=== PATIENT | male | born 1975 | race Caucasian/White ===

== ENCOUNTER 2023-11-27 09:44 | Outpatient (OUT) | payer OTHER, SELFPAY ==
[2023-11-27 10:15] LABS: Basophils Percent Auto 0.4 % (0.2-2.0); Eosinophils Absolute Auto 0.2 10^3/uL (0.0-0.7); Eosinophils Percent Auto 2.2 % (0.9-7.0); Hemoglobin 14.9 g/dL (14.0-18.0); Immature Granulocytes Abs Auto 0.02 10^3/uL (0.00-0.03); Immature Granulocytes Pct Auto 0.3 % (0.0-0.5); Lymphocytes Absolute Auto 2.2 10^3/uL (1.2-3.8); Lymphocytes Percent Auto 31.3 % (20.5-60.0); Mean Corpuscular HGB Conc 33.9 g/dL (29.9-35.2); Mean Corpuscular Hemoglobin 29.3 pg (25.9-34.0); Mean Corpuscular Volume 86.6 fL (80.0-94.0); Mean Platelet Volume 10.2 fL (9.5-13.5); Monocytes Absolute Auto 0.4 10^3/uL (0.3-0.8); Monocytes Percent Auto 6.1 % (1.7-12.0); Neutrophils Absolute Auto 4.2 10^3/uL (1.4-6.5); Neutrophils Percent Auto 59.7 % (43.0-75.0); Platelet Count 167 10^3/uL (150-450); Red Blood Count 5.08 10^6/uL (4.70-6.10); Red Cell Distribution Width 12.9 % (11.0-15.0); White Blood Count 6.9 10^3/uL (4.0-11.0)
[2023-11-27 10:33] LABS: Estimated Average Glucose 209 mg/dL; Glycohemoglobin A1C 8.9 % (4.5-6.2)
[2023-11-27 10:51] LABS: Prostate Specific Antigen Dx 0.33 ng/mL (<=4.00)
[2023-11-27 11:35] LABS: Alanine Aminotransferase 26 U/L (16-63); Albumin Globulin Ratio 1.3; Albumin Level 3.9 g/dL (3.4-5.0); Alkaline Phosphatase 68 U/L (46-116); Anion Gap 9.4; Aspartate Amino Transferase 11 U/L (15-37); BUN Creatinine Ratio 15.2; Bilirubin Direct 0.1 mg/dL (0.0-0.2); Bilirubin Total 0.5 mg/dL (0.2-1.0); Calcium 9.1 mg/dL (8.5-10.1); Carbon Dioxide 29.8 mmol/L (21.0-32.0); Chloride 108 mmol/L (98-107); Chol HDL Ratio 5.8; Cholesterol 220 mg/dL (<=200); Estimated GFR (African America >60 (>=60); Estimated GFR (Non-African Ame >60 (>=60); Glucose 144 mg/dL (74-106); HDL Cholesterol 38 mg/dL (40-60); Potassium 4.2 mmol/L (3.5-5.1); Sodium 143 mmol/L (136-145); Thyroid Stimulating Hormone 2.279 uIU/mL (0.358-3.740); Total Protein 6.9 g/dL (6.4-8.2); Triglycerides 271 mg/dL (<=150); VLDL CHOLESTEROL 54.2 mg/dL
[2023-11-27 11:41] LABS: Microalbumin Urine Random <1.3 mg/dL (<=30.0)
== END 2023-11-27 09:45 | disposition home or self-care (01) ==
LOC: LAB 09:44
PROVIDERS: PCP Family Medicine; Visit Provider Family Medicine
DX: Z00.00 Encounter for general adult medical examination without abnormal findings (principal); E55.9 Vitamin D deficiency, unspecified; E11.65 Type 2 diabetes mellitus with hyperglycemia
CPT/HCPCS: 36415; 80048; 80061; 80076; 82043; 82306; 83036; 84153; 84443; 85025

== ENCOUNTER 2024-06-24 07:46 | Outpatient (OUT) | payer OTHER, SELFPAY ==
[2024-06-24 08:17] LABS: Estimated Average Glucose 126 mg/dL
== END 2024-06-24 07:47 | disposition home or self-care (01) ==
LOC: LAB 07:46
PROVIDERS: PCP Family Medicine; Visit Provider Family Medicine
DX: E11.65 Type 2 diabetes mellitus with hyperglycemia (principal)
CPT/HCPCS: 36415; 83036

== ENCOUNTER 2024-12-02 07:13 | Outpatient (OUT) | payer OTHER, SELFPAY ==
--- OUTSIDE RECORDS SUMMARY | 2024-12-02 07:18 | XMS_ITS | CCD ---
Author Organization [facility] Care Team Providers Care Electrical Instrument Technician Name Role Phone DR CORNELIUS ARITA Attending Unavailable LYLA, DR CORNELIUS Pate Admitting Unavailable LYLA, DR CORNELIUS Pate Primary Care Unavailable LYLA, DR CORNELIUS Pate Consulting Unavailable LYLA, DR CORNELIUS Pate Consulting Unavailable LYLA, DR CORNELIUS Pate Attending Unavailable LYLA, DR CORNELIUS Pate Admitting Unavailable Cornelius Arita MD Primary Care Provider [phone] Cornelius Arita MD Unavailable CORNELIUS ARITA Attending Unavailable LYLA, CORNELIUS Attending Unavailable Medications Current Medications Medication Drug Class(es) Dates Sig (Normalized) Sig (Original) atorvastatin 40 mg oral tablet (8 sources) HMG-CoA Reductase Inhibitor Start: 10-30-2024 take 1 tablet by mouth once daily at bedtime atorvastatin (Lipitor) 40 MG tablet Indications: Type 2 diabetes mellitus with hyperglycemia (CMS/HCC) TAKE 1 TABLET BY MOUTH EVERYDAY AT BEDTIME 90 tablet 4 10/30/2024 Active Start: 08-27-2024 Atorvastatin 4 0 mg tablet Active MG PO August 27, 2024 12:00am Start: 11-15-2023 take 1 tablet by olive th once daily at bedtime atorvastatin (Lipitor) 40 MG tablet Indications: Type 2 diabetes mellitus with hyperglycemia (CMS/HCC) TAKE 1 TABLET BY MOUTH EVERYDAY AT BEDTIME 30 tablet 11 11/15/2023 Active furosemide 40 mg oral tablet (8 sources) Loop Diuretic Start: 04-25-2024 take 1 tablet by mouth once daily furosemide (Lasix) 40 MG tablet Indications: Bilateral leg edema TAKE 1 TABLET BY MOUTH EVERY DAY 90 tablet 2 04/25/2024 Active polymyxin b 86539 unt/ml / trimethoprim 1 mg/ml ophthalmic solution (1 source) Dihydrofolate Reductase Inhibitor Antibacterial, Polymyxin-class Antibacterial Start: 08-27-2024 Polymyxin B Sulf-Trimethoprim 10,000 unit- 1 mg/mL drops Active 1 DROPS OPHTHALMIC Every three hours 10 August 27, 2024 12:00am while awake; do not exceed 6 doses in 24 hours semaglutide 14 mg oral tablet (7 sources) Start: 11-29-2023 take 1 tablet by mouth once daily semaglutide (Rybelsus) 14 MG tablet Indications: Type 2 diabetes mellitus with hyperglycemia, without long-term current use of insulin ([facility]) Take 1 tablet (14 mg) by mouth Daily 90 tablet 3 11/29/2023 Active Semaglutide (Rybelsus) 14 mg tablet (1 source) Start: 08-27-2024 Semaglutide (Rybelsus) 14 mg tablet Active MG PO August 27, 2024 12:00am Problems Active Problems Problem Classification Problem Date Documented Da te Episodic/Chronic Diabetes mellitus with complications (19 sources) Type 2 diabetes mellitus with hyperglycemia; Translations: [Hyperglycemia due to type 2 diabetes mellitus] Onset: 10-17-2022 Chronic Disorders of lipid metabolism (2 sources) Hyperlipidemia; Translations: [Hyperlipidemia, unspecified] 11-28-2024 Chronic Essential hypertension (11 sources) Benign essential hypertension; Translations: [Essential (primary) hypertension] Onset: 11-23-2023 11-23-2023 Chronic Nutritional deficiencies (8 sources) Vitamin D deficiency, unspecified; Translations: [Vitamin D deficiency] Onset: 11-19-2021 11-23-2023 Chronic Other male genital disorders (7 sources) Secondary erectile dysfunction; Translations: [Male erectile dysfunction, unspecified] Onset: 11-23-2023 11-23-2023 Chronic Other male genital disorders (2 sources) Male erectile dysfunction, unspecified; Translations: [Impotence of organic origin] 05-30-2024 Chronic Other nutritional; endocrine; and metabolic disorders (2 sources) Body mass index 30+ - obesity; Translations: [Body mass index (BMI) 36.0-36.9, adult] 05-30-2024 Chronic Other nutritional; endocrine; and metabolic disorders (4 sources) Severe obesity; Translations: [Class 2 severe obesity due to excess calories with serious comorbidity and body mass index (BMI) of 37.0 to 37.9 in adult ([facility])] Onset: 11-28-2024 11-28-2024 Chronic Residual codes; unclassified (9 sources) Obstructive sleep apnea syndrome; Translations: [Obstructive sleep apnea (adult) (pediatric)] Onset: 11-23-2023 11-23-2023 Chronic Thyroid disorders (7 sources) Hypothyroidism; Translations: [Hypothyroidism, unspecified] Onset: 11-23-2023 11-23-2023 Chronic Past or Other Problems Problem Classification Problem Date Documented Da te Episodic/Chronic Other screening for suspected conditions (not mental disorders or infectious disease) (2 sources) Other specified abnormal findings of blood chemistry; Translations: [Encounter for screening for malignant neoplasm of prostate] Onset: 11-19-2021 Episodic Residual codes; unclassified (9 sources) Bilateral lower limb edema; Translations: [Localized edema] Onset: 11-23-2023 11-23-2023 Episodic Results Test Name Value Interpretation Reference Range Facility [facility] HEMOGLOBIN A1Con 024 Glucose [Mass/Vol] 126 mg/dL [facility] HbA1c (Bld) [Mass fraction] 6 % 4.5 - 6.2 % [facility] Comment on above: ADA RECOMMENDED LIMI T 4.0 - 6.0 ADA THERAPEUTIC TARGET < 7.0 ACTION SUGGESTED > 7.0 [facility] A1Con 2022 ADA RECOMMENDATION SEE BELOW Normal [facility] Comment on above: Result Comment: ADA RECOMMENDED LIMIT 4.0 - 6.0 ADA THERAPEUTIC TARGET < 7.0 ACTION SUGGESTED > 7.0 Performed By: #### A 1C #### [facility] [address] [place] [address] Dr. Norm Rangel Glucose [Mass/Vol] 143 mg/dL Normal [facility] Comment on above: Performed By: #### A 1C #### [facility] [address] [address] [address] Norm Rangel HbA1c (Bld) [Mass fraction] 6.6 % Critically high 4.5-6.2 [facility] Comment on above: Performed By: #### A 1C #### [facility] [address] [address] [address] Norm Rangel CBC AUTO DIFFon 11-13-2021 BASO # 0.1 103/ul Normal 0.0-0.1 [facility] Comment on above: Performed By: #### C BC #### [facility] [address] [address] [address] Norm Rangel Basophils/100 WBC (Bld) 0.5 % Normal 0.2-2.0 [facility] Comment on above: Performed By: #### C BC #### [facility] [address] [address] [address] Norm Rangel EO # 0.5 103/ul Normal 0.0-0.7 [facility] Comment on above: Performed By: #### C BC #### [facility] [address] [address] [address] Norm Rangel Eosinophils/100 WBC (Bld) 3.9 % Normal 0.9-7.0 [facility] Comment on above: Performed By: #### C BC #### [facility] [address] [place] [address] Dr. Norm Rangel Erythrocyte distribution width (RBC) [Ratio] 13.6 % Normal 11.0-15.0 [facility] Comment on above: Performed By: #### C BC #### [facility] [address] [place] [address] Dr. Norm Rangel Hematocrit (Bld) [Volume fraction] 52.9 % Normal 42.0-54.0 [facility] Comment on above: Performed By: #### C BC #### [facility] [address] [place] [address] Dr. Norm Rangel Hemoglobin (Bld) [Mass/Vol] 17.5 g/dL Normal 14.0-18.0 [facility] Comment on above: Performed By: #### C BC #### [facility] [address] [place] [address] Dr. Norm Rangel IG # 0.05 10e3/ul Critically high 0.00-0.03 [facility] Comment on above: Performed By: #### C BC #### [facility] [address] [address] [address] Norm Rangel IG % 0.4 % Normal 0.0-0.5 [facility] Comment on above: Performed By: #### C BC #### [facility] [address] [place] [address] Dr. Norm Rangel LYMPH # 2.2 103/ul Normal 1.2-3.8 [facility] Comment on above: Performed By: #### C BC #### [facility] [address] [place] [address] Dr. Norm Rangel Lymphocytes/100 WBC (Bld) 16.8 % Critically low 20.5-60.0 [facility] Comment on above: Performed By: #### C BC #### [facility] [address] [place] [address] Dr. Norm Rangel MANUAL DIFF REQ NO Normal [facility] Comment on above: Performed By: #### C BC #### [facility] [address] [place] [address] Dr. Norm Rangel MCH (RBC) [Entitic mass] 28.9 pg Normal 25.9-34.0 [facility] Comment on above: Performed By: #### C BC #### [facility] [address] [place] [address] Dr. Norm Rangel MCHC (RBC) [Mass/Vol] 33.1 g/dL Normal 29.9-35.2 [facility] Comment on above: Performed By: #### C BC #### [facility] [address] [place] [address] Dr. Norm Rangel MCV (RBC) [Entitic vol] 87.4 fL Normal 80.0-94.0 [facility] Comment on above: Performed By: #### C BC #### [facility] [address] [place] [address] Dr. Norm Rangel MONO # 0.7 103/ul Normal 0.3-0.8 [facility] Comment on above: Performed By: #### C BC #### [facility] [address] [place] [address] Dr. Norm Rangel Monocytes/100 WBC (Bld) 5.2 % Normal 1.7-12.0 [facility] Comment on above: Performed By: #### C BC #### [facility] [address] [address] [address] Norm Rangel NEUT # 9.8 103/ul Critically high 1.4-6.5 [facility] Comment on above: Performed By: #### C BC #### [facility] [address] [address] [address] Norm Rangel Neutrophils/100 WBC (Bld) 73.2 % Normal 43.0-75.0 [facility] Comment on above: Performed By: #### C BC #### [facility] [address] [address] [address] Norm Rangel Platelet mean volume (Bld) [Entitic vol] 10.1 fL Normal 9.5-13.5 [facility] Comment on above: Performed By: #### C BC #### [facility] [address] [address] [address] Norm Rangel PLT 210 103/ul Normal 150-450 [facility] Comment on above: Performed By: #### C BC #### [facility] [address] [address] [address] Nomr Rangel RBC 6.05 106/ul Normal 4.70-6.10 [facility] Comment on above: Performed By: #### C BC #### [facility] [address] [address] [address] Norm Rangel WBC 13.3 103/ul Critically high 4.0-11.0 [facility] Comment on above: Performed By: #### C BC #### [facility] [address] [address] [address] Norm Rangel FREE T3on 11-13-2021 FREE T3 2.55 pg/mlL Critically low 2.77-5.27 [facility] Comment on above: Performed By: #### F T3 #### [facility] [address] [address] [address] Norm Rangel FREE T4on 11-13-2021 Free T4 [Mass/Vol] 0.63 ng/dL Critically low 0.78-2.19 [facility] Comment on above: Performed By: #### F T4 #### [facility] [address] [address] [address] Norm Rangel GLYCOHEMOGLOBIN A1Con 2021 ADA RECOMMENDATION ADA THERAPEUTIC TARGET 6.0 - 7.0 ACTION SUGGESTED > 7.0 Normal [facility] Comment on above: Performed By: #### A 1C #### [facility] [address] [address] [address] Norm Rangel Glucose [Mass/Vol] 186 mg/dL Normal [facility] Comment on above: Performed By: #### A 1C #### [facility] [address] [address] [address] Norm Rangel HbA1c (Bld) [Mass fraction] 8.1 % Critically high <=6.0 [facility] Comment on above: Performed By: #### A 1C #### [facility] [address] [address] [address] Norm Rangel LIPID PROFILEon 11-13-2021 CHOL-HDL RATIO NORM SEE BELOW Normal [facility] Comment on above: Result Comment: 3.3 - 4.4 LOW RISK 4.4 - 7.1 AVERAGE RISK 7.1 - 11.0 MODERATE RISK >11.0 HIGH RISK Performed By: #### L IPID, TSH, BMP, LIVER #### [facility] [address] [address] [address] Norm Rangel Cholesterol [Mass/Vol] 143 mg/dL Normal <=200 [facility] Comment on above: Performed By: #### L IPID, TSH, BMP, LIVER #### [facility] [address] [address] [address] Norm Rangel Cholesterol in HDL [Mass/Vol] 27 mg/dL Critically low 40-60 [facility] Comment on above: Performed By: #### L IPID, TSH, BMP, LIVER #### [facility] [address] [address] [address] Norm Rangel Cholesterol in LDL [Mass/Vol] 81.0 mg/dL Normal [facility] Comment on above: Performed By: #### L IPID, TSH, BMP, LIVER #### [facility] [address] [address] [address] Norm Rangel Cholesterol.total/Cho lesterol in HDL [Mass ratio] 5.3 {ratio} Normal [facility] Comment on above: Performed By: #### L IPID, TSH, BMP, LIVER #### [facility] [address] [address] [address] Norm Rangel HDL NORMAL > or = 60 mg/dl - LOW CARDIOVASCULAR RISK <40 mg/dl - HIGH CARDIOVASCULAR RISK Normal [facility] Comment on above: Performed By: #### L IPID, TSH, BMP, LIVER #### [facility] [address] [address] [address] Norm Rangel LDL CALC NORMAL SEE BELOW Normal [facility] Comment on above: Result Comment: <100 mg/dl OPTIMAL 100 - 129 mg/dl NEAR OR ABOVE OPTIMAL 130 - 159 mg/dl BORDERLINE HIGH 160 - 189 mg/dl HIGH >190 mg/dl VERY HIGH Performed By: #### L IPID, TSH, BMP, LIVER #### [facility] [address] [address] [address] Norm Rangel Triglyceride [Mass/Vol] 175 mg/dL Critically high <=150 [facility] Comment on above: Performed By: #### L IPID, TSH, BMP, LIVER #### [facility] [address] [address] [address] Norm Rangel VLDL CALC 35.0 mg/dL Normal [facility] Comment on above: Performed By: #### L IPID, TSH, BMP, LIVER #### [facility] [address] [address] [address] Norm Rangel LIVER PROFILEon 11-13-2021 Albumin [Mass/Vol] 4.4 g/dL Normal 3.4-5.0 [facility] Comment on above: Performed By: #### L IPID, TSH, BMP, LIVER #### [facility] [address] [place] [address] Dr. Norm Rangel Albumin/Globulin [Mass ratio] 1.4 {ratio} Normal [facility] Comment on above: Performed By: #### L IPID, TSH, BMP, LIVER #### [facility] [address] [address] [address] Norm Rangel ALP [Catalytic activity/Vol] 56 U/L Normal 46-116 [facility] Comment on above: Performed By: #### L IPID, TSH, BMP, LIVER #### [facility] [address] [place] [address] Dr. Norm Rangel ALT [Catalytic activity/Vol] 38 U/L Normal 16-63 [facility] Comment on above: Performed By: #### L IPID, TSH, BMP, LIVER #### [facility] [address] [place] [address] Dr. Nrom Rangel AST [Catalytic activity/Vol] 18 U/L Normal 15-37 [facility] Comment on above: Performed By: #### L IPID, TSH, BMP, LIVER #### [facility] [address] [place] [address] Dr. Norm Rangel BILI, CONJUGATED 0.1 mg/dL Normal 0.0-0.3 [facility] Comment on above: Performed By: #### L IPID, TSH, BMP, LIVER #### [facility] [address] [place] [address] Dr. Norm Rangel Bilirubin [Mass/Vol] 0.6 mg/dL Normal 0.2-1.3 [facility] Comment on above: Performed By: #### L IPID, TSH, BMP, LIVER #### [facility] [address] [place] [address] Dr. Norm Rangel Globulin (S) [Mass/Vol] 3.2 g/dL Normal [facility] Comment on above: Performed By: #### L IPID, TSH, BMP, LIVER #### [facility] [address] [place] [address] Dr. Norm Rangel Protein [Mass/Vol] 7.6 g/dL Normal 6.1-8.2 [facility] Comment on above: Performed By: #### L IPID, TSH, BMP, LIVER #### [facility] [address] [place], [place] [id number] Dr. Norm Rangel PROF CHEM 8 (BAS METB)on Anion gap [Moles/Vol] 13.0 mmol/L Normal [facility] Comment on above: Performed By: #### L IPID, TSH, BMP, LIVER #### [facility] [address] [place] [address] Dr. Norm Rangel Calcium [Mass/Vol] 8.9 mg/dL Normal 8.5-10.1 [facility] Comment on above: Performed By: #### L IPID, TSH, BMP, LIVER #### [facility] [address] [place] [address] Dr. Norm Rangel Chloride [Moles/Vol] 104 mmol/L Normal 98-107 [facility] Comment on above: Performed By: #### L IPID, TSH, BMP, LIVER #### [facility] [address] [place] [address] Dr. Norm Rangel CO2 [Moles/Vol] 28.2 mmol/L Normal 22.0-30.0 [facility] Comment on above: Performed By: #### L IPID, TSH, BMP, LIVER #### [facility] [address] [place] [address] Dr. Norm Rangel Creatinine [Mass/Vol] 1.15 mg/dL Normal 0.66-1.25 [facility] Comment on above: Performed By: #### L IPID, TSH, BMP, LIVER #### [facility] [address] [place] [address] Dr. Norm Rangel EGFR-AF GUAMANIAN >60 Normal >=60 [facility] Comment on above: Performed By: #### L IPID, TSH, BMP, LIVER #### [facility] [address] [place] [address] Dr. Norm Rangel EGFR-NON AF GUAMANIAN >60 Normal >=60 [facility] Comment on above: Performed By: #### L IPID, TSH, BMP, LIVER #### [facility] [address] [place] [address] Dr. Norm Rangel Glucose [Mass/Vol] 153 mg/dL Critically high 74-106 T [facility] Comment on above: Performed By: #### L IPID, TSH, BMP, LIVER #### [facility] [address] [place] [address] Dr. Norm Rangel Potassium [Moles/Vol] 4.2 mmol/L Normal 3.4-5.0 [facility] Comment on above: Performed By: #### L IPID, TSH, BMP, LIVER #### [facility] [address] [place] [address] Dr. Norm Rangel Sodium [Moles/Vol] 141 mmol/L Normal 137-145 [facility] Comment on above: Performed By: #### L IPID, TSH, BMP, LIVER #### [facility] [address] [place] [address] Dr. Norm Rangel Urea nitrogen [Mass/Vol] 17.0 mg/dL Normal 7.0-18.0 [facility] Comment on above: Performed By: #### L IPID, TSH, BMP, LIVER #### [facility] [address] [place] [address] Dr. Norm Rangel Urea nitrogen/Creatinine [Mass ratio] 14.8 mg/mg Normal [facility] Comment on above: Performed By: #### L IPID, TSH, BMP, LIVER #### [facility] [address] [place] [address] Dr. Norm Rangel TSHon 11-13-2021 TSH 6.140 uIU/mL Critically high 0.470-4.680 [facility] Comment on above: Performed By: #### L IPID, TSH, BMP, LIVER #### [facility] [address] [place] [address] Dr. Norm Rangel TSH RANGE SEE BELOW Normal [facility] Comment on above: Result Comment: <0.3 4 UIU/ml HYPERTHYROID 0.34-5.60 UIU/ml EUTHYROID >5.60 UIU/ml HYPOTHYROID Performed By: #### L IPID, TSH, BMP, LIVER #### [facility] [address] [place] [address] Dr. Norm Rangel VITAMIN D 25 OHon 11-13-2021 VIT D 25-OH 43.2 ng/mL Normal [facility] Comment on above: Performed By: #### F T3 #### [facility] [address] [place], [place] [address] Dr. Norm Rangel VIT D RANGES SEE BELOW Normal [facility] Comment on above: Result Comment: <20 ng/mL Vit D deficient 20 - <30 ng/mL Vit D insufficient 30 - 100 ng/mL Vit D sufficient >100 ng/mL Potential Toxicity Performed By: #### F T3 #### [facility] [address] [place], [place] [address] Dr. Norm Rangel Vital Signs Date Time Vital Sign Value Performing Clinician Facility 11-28-2024 15:39-0400 Body height 188 cm Cornelius Arita MD Work Phone: [facility] 11-28-2024 15:39-0400 Body mass index (BMI) [Ratio] 37.62 kg/m2 Cornelius Arita MD Work Phone: [facility] 11-28-2024 15:39-0400 Body temperature 98.01 [degF] Cornelius Arita MD Work Phone: [facility] 11-28-2024 15:39-0400 Body weight 132.9 kg Cornelius Arita MD Work Phone: [facility] 11-28-2024 15:39-0400 Diastolic blood pressure 72 mm[Hg] Cornelius Arita MD Work Phone: [facility] 11-28-2024 15:39-0400 Heart rate 88 /min Cornelius Arita MD Work Phone: [facility] 11-28-2024 15:39-0400 Respiratory rate 20 /min Cornelius Arita MD Work Phone: [facility] 11-28-2024 15:39-0400 SaO2% (BldA) [Mass fraction] 97 % Cornelius Arita MD Work Phone: [facility] 11-28-2024 15:39-0400 Systolic blood pressure 140 mm[Hg] Cornelius Arita MD Work Phone: [facility] 08-27-2024 13:18-0500 Body height 189.23 cm [facility] 08-27-2024 13:18-0500 Body mass index (BMI) [Ratio] 37.6 kg/m2 [facility] 08-27-2024 13:18-0500 Body temperature 98.7 [degF] [facility] 08-27-2024 13:18-0500 Body weight 134.88 kg [facility] 08-27-2024 13:18-0500 Diastolic blood pressure 81 mm[Hg] [facility] 08-27-2024 13:18-0500 Heart rate 77 /min [facility] 08-27-2024 13:18-0500 Respiratory rate 19 /min [facility] 08-27-2024 13:18-0500 SaO2% (BldA) [Mass fraction] 97 % [facility] 08-27-2024 13:18-0500 Systolic blood pressure 118 mm[Hg] [facility] 05-30-2024 15:31-0400 Body height 188 cm Cornelius Arita MD Work Phone: [facility] 05-30-2024 15:31-0400 Body mass index (BMI) [Ratio] 37.11 kg/m2 Cornelius Arita MD Work Phone: [facility] 05-30-2024 15:31-0400 Body temperature 97.11 [degF] Cornelius Arita MD Work Phone: [facility] 05-30-2024 15:31-0400 Body weight 131.09 kg Cornelius Arita MD Work Phone: [facility] 05-30-2024 15:31-0400 Diastolic blood pressure 70 mm[Hg] Cornelius Arita MD Work Phone: [facility] 05-30-2024 15:31-0400 Heart rate 87 /min Cornelius Arita MD Work Phone: [facility] 05-30-2024 15:31-0400 Respiratory rate 20 /min Cornelius Arita MD Work Phone: [facility] 05-30-2024 15:31-0400 SaO2% (BldA) [Mass fraction] 96 % Cornelius Arita MD Work Phone: [facility] 05-30-2024 15:31-0400 Systolic blood pressure 128 mm[Hg] Cornelius Arita MD Work Phone: [facility] Healthcare Encounters Encounter Date Encounter Type Care Provider Facility Start: 11-28-2024 End: 11-28-2024 Patient encounter procedure Cornelius Arita MD Work Phone: [facility] Healthcare Work Phone: Start: 11-28-2024 End: 11-28-2024 Periodic preventive med est patient 40-64yrs Cornelius Arita MD Work Phone: [facility] Comment on above: Annual physical exam (Primary Dx); Type 2 diabetes mellitus with hyperglycemia, without long-term current use of insulin ([facility]); Essential hypertension, benign (CMS/[facility]); Class 2 severe obesity due to excess calories with serious comorbidity and body mass index (BMI) of 37.0 to 37.9 in adult (CMS/HCC); Type 2 diabetes mellitus with other specified complication; Hyperlipidemia, unspecified (CMS/HCC) Start: 11-28-2024 End: 11-28-2024 ambulatory CORNELIUS ARITA Not Available Start: 11-28-2024 End: 11-28-2024 Bamboo flowsheet Cornelius Arita MD Work Phone: [facility] Start: 11-28-2024 End: 11-28-2024 Bamboo flowsheet Cornelius Arita MD Work Phone: [facility] Start: 08-27-2024 End: 08-27-2024 ambulatory [facility] Work Phone: Start: 08-27-2024 End: 08-27-2024 Patient encounter procedure [facility] Physician [facility] Work Phone: Start: 06-24-2024 End: 06-26-2024 Clinisync Result Encounter Cornelius Arita MD Work Phone: [facility] External Department Unsolicited Start: 06-24-2024 End: 06-26-2024 Clinisync Result Encounter Cornelius Arita MD Work Phone: [facility] External Department Unsolicited Start: 05-30-2024 End: 05-30-2024 Office outpatient visit 25 minutes Cornelius Arita MD Work Phone: [facility] Comment on above: Type 2 diabetes kae itus with hyperglycemia, without long-term current use of insulin (CMS/HCC) (Primary Dx); Essential hypertension, benign (CMS/HCC); Bilateral leg edema; Obstructive sleep apnea; Body mass index (BMI) 36.0-36.9, adult; Type 2 diabetes mellitus with other specified complication (CMS/HCC); Male erectile dysfunction, unspecified Start: 05-30-2024 End: 05-30-2024 ambulatory CORNELIUS ARITA Not Available Start: 05-30-2024 End: 05-30-2024 Bamboo flowsheet Cornelius Arita MD Work Phone: [facility] Start: 05-30-2024 End: 05-30-2024 Bamboo flowsheet Cornelius Arita MD Work Phone: [facility] Start: 11-23-2023 Patient encounter procedure Cornelius Arita MD Work Phone: [facility] Start: 10-17-2022 End: 10-18-[address] CORNELIUS ARITA Facility:H1 Start: 11-19-2021 Encounter for genera l adult medical examination without abnormal findings DR CORNEILUS ARITA [facility] Start: 11-13-2021 End: 11-14-[address] CORNELIUS ARITA Facility:[facility]1 Start: 11-13-2021 End: 11-14-2021 Encounter for general adult medical examination without abnormal findings DR CORNELIUS ARITA Facility:[facility]1 Procedures Date Procedure Procedure Detail Performing Clinician Start: 06-24-2024 MLR HEMOGLOBIN A1C Cornelius Arita MD Work Phone: Start: 11-13-[address] CORNELIUS CANALES Comment on above: Performed By: #### V ITARMAND, PSASC #### [facility] [address] [place] [address] Dr. Norm Rangel Plan of Treatment Date Care Activity Detail Author Start: 12-06-2026 Screening for malign ant neoplasm of colon [facility] Start: 06-04-2025 End: 06-04-2025 Patient encounter procedure 06/04/2025 2:45 PM EDT Office Visit [facility] [address] [place] [address] Cornelius Arita MD [address] [place] [phone] [facility] Start: 04-23-2025 Influenza vaccination Influenz a Vaccine (Season Ended) [facility] Start: 11-30-2024 End: 11-30-2024 Patient encounter procedure 11/30/2024 3:00 PM EDT Office Visit [facility] [address] [place] [phone] Cornelius Arita MD [address] [place] [phone] [facility] Start: 11-28-2024 End: 11-28-2024 Patient encounter procedure 11/28/2024 3:15 PM EDT Office Visit [facility] [address] [place] [phone] Cornelius Arita MD [address] [place] [phone] Arrived [facility] Comment on above: Arrived Start: 11-28-2024 End: 11-28-2025 Basic metabolic 1998 panel - Serum or Plasma Basic metabolic panel Lab Routine Annual physical exam Expected: 11/28/2024 (Approximate), Expires: 11/28/2025 [facility] Comment on above: Expected: 11/28/2024 (Approximate), Expires: 11/28/2025 Start: 11-28-2024 End: 11-28-2025 CBC W Auto Differential panel - Blood CBC and differential Lab Routine Annual physical exam Expected: 11/28/2024 (Approximate), Expires: 11/28/2025 [facility] Comment on above: Expected: 11/28/2024 (Approximate), Expires: 11/28/2025 Start: 11-28-2024 End: 11-28-2025 Hemoglobin A1c/Hemoglobin.total in Blood Hemoglobin A1c Lab Routine Annual physical exam Expected: 11/28/2024 (Approximate), Expires: 11/28/2025 [facility] Comment on above: Expected: 11/28/2024 (Approximate), Expires: 11/28/2025 Start: 11-28-2024 End: 11-28-2025 Hepatic function 2000 panel - Serum or Plasma Hepatic function panel Lab Routine Annual physical exam Expected: 11/28/2024 (Approximate), Expires: 11/28/2025 [facility] Comment on above: Expected: 11/28/2024 (Approximate), Expires: 11/28/2025 Start: 11-28-2024 End: 11-28-2025 Lipid 1996 panel - Serum or Plasma Lipid panel Lab Routine Annual physical exam Expected: 11/28/2024 (Approximate), Expires: 11/28/2025 [facility] Comment on above: Expected: 11/28/2024 (Approximate), Expires: 11/28/2025 Start: 11-28-2024 End: 11-28-2025 Microalbumin/Creatinine panel in random Urine Microalbumin / creatinine, urine ratio Lab Routine Type 2 diabetes mellitus with hyperglycemia, without long-term current use of insulin ([facility] Expected: 11/28/2024 (Approximate), Expires: 11/28/2025 [facility] Work Phone: Comment on above: Expected: 11/28/2024 (Approximate), Expires: 11/28/2025 Start: 11-28-2024 End: 11-28-2025 Prostate specific Ag [Mass/volume] in Serum or Plasma PSA Lab Routine Annual physical exam Expected: 11/28/2024 (Approximate), Expires: 11/28/2025 [facility] Comment on above: Expected: 11/28/2024 (Approximate), Expires: 11/28/2025 Start: 11-28-2024 End: 11-28-2025 Thyrotropin [Units/volume] in Serum or Plasma TSH Lab Routine Annual physical exam Expected: 11/28/2024 (Approximate), Expires: 11/28/2025 [facility] Comment on above: Expected: 11/28/2024 (Approximate), Expires: 11/28/2025 Start: 11-26-2024 Urine screening for protein Diabetes: Urine Protein Screening [facility] Start: 05-30-2024 End: 05-30-2024 Patient encounter procedure 05/30/2024 3:30 PM EDT Office Visit [facility] [address] [place] [phone] Cornelius Arita MD [address] [place] [phone] Arrived [facility] Comment on above: Arrived Start: 05-30-2024 End: 05-30-2025 Hemoglobin A1c/Hemoglobin.total in Blood Hemoglobin A1c Lab Routine Type 2 diabetes mellitus with hyperglycemia, without long-term current use of insulin ([facility]) Expected: 05/30/2024 (Approximate), Expires: 05/30/2025 [facility] Work Phone: Comment on above: Expected: 05/30/2024 (Approximate), Expires: 05/30/2025 Start: 05-28-2024 Hemoglobin A1c measurement Diabetes: Hemoglobin A1C [facility] Start: 04-23-2024 Influenza vaccination Influenza Vacc ine (#1) [facility] Start: 12-22-1995 Urine screening for protein Diabetes: Urine Protein Screening [facility] Start: 1986 Glaucoma screening Diabetes: R etinopathy Screening [facility] Start: 1976 Hemoglobin A1c measurement Diabetes: Hemoglobin A1C [facility] Start: 1976 Screening for malign ant neoplasm of colon [facility] Payers Date Payer Category Payer Unknown [employer] [id number] 2023-Present [address] [place] [address] [id number] 2022 Private Health Insurance [id number] 2022 Private Health Insurance [id number] 1976 Unknown [id number] 1976 Unknown [id number] 1976 Unknown [id number] 1976 Unknown [id number] 1959 Unknown [id number] 1959 Unknown [id number] Social History Date Type Detail Facility [facility]: [facility]23[facility]23 [facility] Start: 11-23-2023 Tobacco use and exposure User of smokeless tobacco [facility] History of tobacco use Chews Tobacco [facility] Start: 11-23-2023 End: 11-28-2024 History of Social function [facility] Start: 11-23-2023 End: 11-28-2024 Tobacco use panel [facility] Start: 1976 Sex assigned at Not on file [facility] Tobacco smoking stat [facility] Unknown if ever smoked [facility] Work Phone: Start: 08-27-2024 Sex Male (finding) [facility] Start: 1975 Sex Assigned At Male F [facility] History of Present illness Narrative 11-28-2024 Cornelius Arita MD - 11/28/2024 4:42 PM Keith Arita MD - 11/28/2024 4:41 PM EDAndree Arita MD - 11/28/2024 4:41 PM EDAndree Arita MD - 11/28/2024 4:41 PM EDT Note Date & Type Note Facility 11-28-2024 History of Presen t illness Narrative Associated Problem(s): Class 2 severe obesity due to excess calories with serious comorbidity and body mass index (BMI) of 37.0 to 37.9 in adult ([facility]) Weight loss indicated. Associated Problem(s): Type 2 diabetes mellitus with hyperglycemia, without long-term current use of insulin ([facility]) Reports BS controlled and due for A1C. Stick to ADA diet and limit carbs. Associated Problem(s): Essential hypertension, benign ([facility]) BP controlled and monitor PRN. Associated Problem(s): Annual physical exam Due for labs. Discussed proper diet and regular aerobic exercise. Need aerobic exercise 5-6 days a week for 30 minutes at a time. Smaller portions and limit total calories. Colonoscopy every 10 years. Tetanus every 10 years. Advised not to smoke. Images from the original note were not included. Subjective Patient ID: Edi Gaming is a 48 y.o. male who presents for Annual Exam (wellness). Presents for annual PE. Weight up 7 pounds since fall. Tries to stay active and walks dogs daily but not to gym for several weeks. Tries to watch diet and eat healthy. Increased fruits and vegetables. Smaller portions and limits snacking. Tries to limit total daily calories. Due for labs. BS controlle and 120-135. Tries to eat well and stick to ADA diet. Denies signs of elevated BS such as polyuria, polyphagia or polydipsia. Review of Systems Constitutional: Negative for fatigue. Respiratory: Negative for cough, shortness of breath and wheezing. Cardiovascular: Negative for chest pain and palpitations. Gastrointestinal: Negative for abdominal pain, diarrhea, nausea and vomiting. Genitourinary: Negative for dysuria. Objective Physical Exam Constitutional: General: He is not in acute distress. Appearance: Normal appearance. HENT: Head: Normocephalic. Right Ear: Tympanic membrane and ear canal normal. Left Ear: Tympanic membrane and ear canal normal. Eyes: Extraocular Movements: Extraocular movements intact. Pupils: Pupils are equal, round, and reactive to light. Cardiovascular: Rate and Rhythm: Normal rate and regular rhythm. Heart sounds: No murmur heard. No friction rub. No gallop. Pulmonary: Breath sounds: Normal breath sounds. No wheezing, rhonchi or rales. Abdominal: General: Bowel sounds are normal. There is no distension. Palpations: Abdomen is soft. Tenderness: There is no abdominal tenderness. There is no guarding or rebound. Musculoskeletal: General: Normal range of motion. Left lower leg: No edema. Neurological: General: No focal deficit present. Mental Status: He is alert. Cranial Nerves: No cranial nerve deficit. Deep Tendon Reflexes: Reflexes normal. Assessment/Plan Problem List Items Addressed This Visit Essential hypertension, benign (CMS/HCC) BP controlled and monitor PRN. Type 2 diabetes mellitus with hyperglycemia, without long-term current use of insulin ([facility]) Reports BS controlled and due for A1C. Stick to ADA diet and limit carbs. Relevant Orders Microalbumin / creatinine, urine ratio Annual physical exam - Primary Due for labs. Discussed proper diet and regular aerobic exercise. Need aerobic exercise 5-6 days a week for 30 minutes at a time. Smaller portions and limit total calories. Colonoscopy every 10 years. Tetanus every 10 years. Advised not to smoke. Relevant Orders Hemoglobin A1c Basic metabolic panel CBC and differential Hepatic function panel Lipid panel PSA TSH documented in this encounter [facility] History of Present illness Narrative 05-30-2024 Cornelius Arita MD - 05/30/2024 4:08 PM EDTMmoreno Arita MD - 05/30/2024 4:08 PM EDAndree Arita MD - 05/30/2024 4:08 PM EDAndree Arita MD - 05/30/2024 4:08 PM EDT Note Date & Type Note Facility 05-30-2024 History of Presen t illness Narrative Associated Problem(s): Type 2 diabetes mellitus with hyperglycemia, without long-term current use of insulin (CMS/HCC) Reports BS controlled and due for A1C. Stick to ADA diet and limit carbs. Associated Problem(s): Obstructive sleep apnea Sleeping well with CPAP and continue nightly. The patient is benefiting from PAP therapy. Associated Problem(s): Essential hypertension, benign (CMS/HCC) BP controlled and monitor PRN. Associated Problem(s): Bilateral leg edema Edema controlled with medication and continue. Elevate legs PRN. Images from the original note were not included. Subjective Patient ID: Edi Gaming is a 48 y.o. male who presents for Dizziness (6m ). Follow up DM, HTN, edema, and [place]. Patient feels well today. BS controlled around 120-140. Tries to eat well and stick to ADA diet. Denies signs of elevated BS such as polyuria, polyphagia or polydipsia. Checking BP PRN and typically controlled. BP normal today. Taking medication daily and tolerating without side effects. Edema controlled with medication. Mild swelling at end of day and if on feet a lot. Edema improved in am and with elevation. [place] controlled with CPAP. Using machine nightly for entire time asleep, typically 6-8 hours. Sleeping well and not waking up as much during night. Rested in am and not as tired during day. Review of Systems Constitutional: Negative for fatigue. Respiratory: Negative for cough, shortness of breath and wheezing. Cardiovascular: Negative for chest pain and palpitations. Gastrointestinal: Negative for abdominal pain, diarrhea, nausea and vomiting. Genitourinary: Negative for dysuria. Objective Physical Exam Constitutional: General: He is not in acute distress. Appearance: Normal appearance. HENT: Head: Normocephalic. Right Ear: Tympanic membrane and ear canal normal. Left Ear: Tympanic membrane and ear canal normal. Eyes: Extraocular Movements: Extraocular movements intact. Pupils: Pupils are equal, round, and reactive to light. Cardiovascular: Rate and Rhythm: Normal rate and regular rhythm. Heart sounds: No murmur heard. No friction rub. No gallop. Pulmonary: Breath sounds: Normal breath sounds. No wheezing, rhonchi or rales. Abdominal: General: Bowel sounds are normal. There is no distension. Palpations: Abdomen is soft. Tenderness: There is no abdominal tenderness. There is no guarding or rebound. Musculoskeletal: Left lower leg: No edema. Neurological: Mental Status: He is alert. Assessment/Plan Problem List Items Addressed This Visit Essential hypertension, benign (CMS/HCC) BP controlled and monitor PRN. Bilateral leg edema Edema controlled with medication and continue. Elevate legs PRN. Obstructive sleep apnea Sleeping well with CPAP and continue nightly. The patient is benefiting from PAP therapy. Type 2 diabetes mellitus with hyperglycemia, without long-term current use of insulin (CMS/HCC) - Primary Reports BS controlled and due for A1C. Stick to ADA diet and limit carbs. Relevant Orders Hemoglobin A1c documented in this encounter [facility] Evaluation note Note Date & Type Note Facility Evaluation note Diagnosis Type 2 diabetes mellitus with hyperglycemia, without long-term current use of insulin (CMS/HCC)- Primary Essential hypertension, benign (CMS/HCC) Essential hypertension, benign Bilateral leg edema Edema Obstructive sleep apnea Obstructive sleep apnea (adult) (pediatric) Body mass index (BMI) 36.0-36.9, adult Type 2 diabetes mellitus with other specified complication (CMS/HCC) Male erectile dysfunction, unspecified documented in this encounter [facility] Evaluation note Note Date & Type Note Facility Evaluation note No assessment information availa [facility] Work Phone: Evaluation note Note Date & Type Note Facility Evaluation note Diagnosis Type 2 diabetes mellitus with hyperglycemia, without long-term current use of insulin (CMS/HCC)- Primary Essential hypertension, benign (CMS/HCC) Essential hypertension, benign Bilateral leg edema Edema Obstructive sleep apnea Obstructive sleep apnea (adult) (pediatric) Annual physical exam Routine general medical examination at a health care facility Vitamin D deficiency Colon cancer screening Special screening for malignant neoplasms, colon Type 2 diabetes mellitus with hyperglycemia, without long-term current use of insulin (CMS/HCC)- Primary Essential hypertension, benign (CMS/HCC) Essential hypertension, benign Bilateral leg edema Edema Obstructive sleep apnea Obstructive sleep apnea (adult) (pediatric) Body mass index (BMI) 36.0-36.9, adult Type 2 diabetes mellitus with other specified complication Male erectile dysfunction, unspecified Annual physical exam- Primary Routine general medical examination at a health care facility Type 2 diabetes mellitus with hyperglycemia, without long-term current use of insulin (CMS/HCC) Essential hypertension, benign (CMS/HCC) Essential hypertension, benign Class 2 severe obesity due to excess calories with serious comorbidity and body mass index (BMI) of 37.0 to 37.9 in adult (CMS/HCC) Type 2 diabetes mellitus with other specified complication Hyperlipidemia, unspecified (CMS/HCC) documented in this encounter [facility] Summary Purpose Family History No Family History Records FoundNo Family History Records Found Advance Directives No Advanced Directives Records Found Advance Directive Response Recorded Date/ Time Advance Directives No August 27, 2024 12:55pm Chief Complaint and Reason for Visit Chief Complaint Admit Date Eye irritation August 27, 2024 12 :58pm Additional Source Comments (unrecognized sect ion and content) No Status Records FoundNo Status Records Found INFORMATION SOURCE (unrecogn ized section and content) DATE CREATED AUTHOR 10/23/2022 [facility] DATE CREATED AUTHOR AUTHOR'S ORGANIZ ATION 11/30/2024 [facility] EP[employer] Care Teams (unrecognized sec tion and content) Electrical Instrument Technician Relationship Specialty Start Date End Date Cornelius Arita MD [address] [place] [address] PCP - General Family Medicine 11/23/23 Cornelius Arita MD [address] [place] [address] PCP - [facility] 08/23/22 08/22/99 Electrical Instrument Technician Relationship Specialty Start Date End Date Cornelius Arita MD [address] [place] [phone] PCP - [facility] 11/23/23 Cornelius Arita MD [address] [place] [phone] PCP - [facility] 08/23/22 08/22/99 Electrical Instrument Technician Relationship Specialty Start Date End Date Cornelius Arita MD [address] [place] [phone] PCP - [facility] 11/23/23 Cornelius Arita MD [address] [place] [phone] PCP - [facility] 08/23/22 08/22/99 Team Status: Active Member Role Status Dates Cornelius Arita MD Primary Care Provider Active Team Status: Inactive Member Role Status Dates Zuleika Rivera APRN Attending Provider Active Start: August 27, 2024 End: August 27, 2024 Cornelius Arita MD Primary Care Provider Active S tart: August 27, 2024 End: August 27, 2024 Electrical Instrument Technician Relationship Specialty Start Date End Date Cornelius Arita MD [address] [place] [phone] PCP - [facility] Family Medicine 11/23/23 Electrical Instrument Technician Relationship Specialty Start Date End Date Cornelius Arita MD [address] [place] [address] PCP - General Family Medicine 11/23/23 Reason for Visit (unrecogniz ed section and content) Reason Comments Dizziness 6m Reason Comments Annual Exam wellness Goals (unrecognized section and content) Goals may be documented in a n alternate section FOR RECORDS PERTAINING TO PATIENTS WHO ARE OR HAVE BEEN ENROLLED IN A CHEMICAL DEPENDENCY/SUBSTANCEABUSE PROGRAM, SOME INFORMATION MAY BE OMITTED. This clinical summary was aggregated from multiple sources. Caution should be exercised in using it in the provision of clinical care. This summary normalizes information from multiple sources, and as a consequence, information in this document may materially change the coding, format and clinical context of patient data. In addition, data may be omitted in some cases. CLINICAL DECISIONS SHOULD BE BASED ON THE PRIMARY CLINICAL RECORDS. [facility]. provides no warranty or guarantee of the accuracy or completeness of information in this document.
[2024-12-02 07:33] LABS: Basophils Percent Auto 0.5 % (0.2-2.0); Eosinophils Absolute Auto 0.2 10^3/uL (0.0-0.7); Eosinophils Percent Auto 2.9 % (0.9-7.0); Hematocrit 43.8 % (42.0-54.0); Hemoglobin 14.8 g/dL (14.0-18.0); Immature Granulocytes Abs Auto 0.01 10^3/uL (0.00-0.03); Immature Granulocytes Pct Auto 0.2 % (0.0-0.5); Lymphocytes Absolute Auto 1.9 10^3/uL (1.2-3.8); Lymphocytes Percent Auto 30.6 % (20.5-60.0); Mean Corpuscular HGB Conc 33.8 g/dL (29.9-35.2); Mean Corpuscular Volume 88.7 fL (80.0-94.0); Mean Platelet Volume 10.2 fL (9.5-13.5); Monocytes Absolute Auto 0.4 10^3/uL (0.3-0.8); Monocytes Percent Auto 6.8 % (1.7-12.0); Neutrophils Absolute Auto 3.7 10^3/uL (1.4-6.5); Platelet Count 190 10^3/uL (150-450); Red Blood Count 4.94 10^6/uL (4.70-6.10); Red Cell Distribution Width 12.6 % (11.0-15.0); White Blood Count 6.3 10^3/uL (4.0-11.0)
[2024-12-02 07:46] LABS: Creatinine Urine Random 179.39 mg/dL (20.00-300.00); Microalbumin Urine Random <1.3 mg/dL (<=30.0)
[2024-12-02 07:52] LABS: Estimated Average Glucose 146 mg/dL; Glycohemoglobin A1C 6.7 % (4.5-6.2)
[2024-12-02 08:11] LABS: Alanine Aminotransferase 26 U/L (16-63); Albumin Globulin Ratio 1.4; Alkaline Phosphatase 73 U/L (46-116); Anion Gap 9.3; Aspartate Amino Transferase 9 U/L (15-37); BUN Creatinine Ratio 22.7; Bilirubin Direct 0.1 mg/dL (0.0-0.2); Bilirubin Total 0.2 mg/dL (0.2-1.0); Calcium 8.9 mg/dL (8.5-10.1); Carbon Dioxide 27.7 mmol/L (21.0-32.0); Chloride 108 mmol/L (98-107); Chol HDL Ratio 6.5; Cholesterol 195 mg/dL (<=200); Estimated GFR (African America >60 (>=60 mL/min/1.73m^2); Estimated GFR (Non-African Ame >60 (>=60 mL/min/1.73m^2); Globulin 2.8 g/dL; Glucose 142 mg/dL (74-106); HDL Cholesterol 30 mg/dL (40-60); Sodium 141 mmol/L (136-145); Thyroid Stimulating Hormone 2.704 uIU/mL (0.358-3.740); Total Protein 6.8 g/dL (6.4-8.2); Triglycerides 338 mg/dL (<=150); VLDL CHOLESTEROL 67.6 mg/dL
[2024-12-02 08:49] LABS: Prostate Specific Antigen Scrn 0.26 ng/mL (<=4.00)
== END 2024-12-02 07:14 | disposition home or self-care (01) ==
LOC: LAB 07:16
PROVIDERS: PCP Family Medicine; Visit Provider Family Medicine
DX: Z00.00 Encounter for general adult medical examination without abnormal findings (principal); E11.65 Type 2 diabetes mellitus with hyperglycemia
CPT/HCPCS: 36415; 80048; 80061; 80076; 82043; 82570; 83036; 84443; 85025; G0103